=== PATIENT | male | born 1975 | race Caucasian/White ===

== ENCOUNTER 2020-12-14 14:08 | Inpatient (IN) | payer MEDICAID, OTHER, SELFPAY ==
[~2020-12-14] VITALS: Ht 180.3 cm; Wt 91.4 kg
[2020-12-14 16:58] LABS: HEMATOCRIT 44.8 % (42.0-52.0); HEMOGLOBIN 14.6 g/dl (13.5-17.5); MEAN CORPUSCULAR HEMOGLOBIN 29.3 pg (27.0-33.0); MEAN CORPUSCULAR HGB CONC 32.6 g/dl (32.0-36.5); PLATELET COUNT, AUTOMATED 304 10^3/uL (150-450); RED BLOOD COUNT 4.98 10^6/uL (4.30-6.10); WHITE BLOOD COUNT 14.6 10^3/uL (4.0-10.0)
[2020-12-14 17:26] LABS: AMPHETAMINES LEVEL URINE NEGATIVE (NEGATIVE); BARBITURATES URINE NEGATIVE (NEGATIVE); BENZODIAZEPINES URINE NEGATIVE (NEGATIVE); CANNABINOIDS URINE POSITIVE (NEGATIVE); COCAINE METABOLITE URINE NEGATIVE (NEGATIVE); METHADONE URINE NEGATIVE (NEGATIVE); OPIATES URINE NEGATIVE (NEGATIVE); PHENCYCLIDINE URINE NEGATIVE (NEGATIVE)
[2020-12-14 17:36] LABS: ACETAMINOPHEN LEVEL < 2.0 UG/ML (10.0-30.0); ALBUMIN 3.9 GM/DL (3.2-5.2); ALT/SGPT 25 U/L (12-78); BILIRUBIN,DIRECT 0.1 MG/DL (0.0-0.2); BILIRUBIN,TOTAL 0.3 MG/DL (0.2-1.0); BLOOD UREA NITROGEN 14 MG/DL (7-18); CALCIUM LEVEL 9.2 MG/DL (8.5-10.1); CARBON DIOXIDE LEVEL 25 MEQ/L (21-32); CHLORIDE LEVEL 103 MEQ/L (98-107); CREATININE FOR GFR 1.14 MG/DL (0.70-1.30); ETHYL ALCOHOL (ETHANOL) < 0.003 % (0.000-0.010); GLOMERULAR FILTRATION RATE > 60.0 (>60); GLUCOSE, FASTING 109 MG/DL (70-100); POTASSIUM SERUM 4.5 MEQ/L (3.5-5.1); SALICYLATE LEVEL < 1.7 MG/DL (5.0-30.0); SODIUM LEVEL 139 MEQ/L (136-145); THYROID STIMULATING HORMONE 0.633 uIU/ML (0.358-3.740); TOTAL PROTEIN 7.6 GM/DL (6.4-8.2)
[2020-12-14 19:28] LABS: RSV AMPLIFICATION NEGATIVE (NEGATIVE)
--- NOTE | 2020-12-14 20:15 | ECGEPIP ---
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
[2020-12-15] MEDS ORDERED: MAALOX 30 ML SUSP *UDC PO PRN (19:45)
[2020-12-15] MEDS ORDERED: LORazepam 2 MG TAB PO PRN (19:45)
[2020-12-15] MEDS ORDERED: traZODone 50 MG TAB PO PRN (19:45)
[2020-12-15] MEDS ORDERED: MOM 30ML SUSPENSION UDC PO PRN (19:45)
[2020-12-15] MEDS ORDERED: LORazepam 1 MG TAB PO PRN (19:45)
[2020-12-15] MEDS ORDERED: haloperidoL 5 MG TAB PO PRN (19:45)
[2020-12-15 22:33] VITALS: BP 140/70
[2020-12-16 09:30] VITALS: BP 134/84
--- NOTE | 2020-12-16 12:54 | HPEPDOC ---
[facility] Medical History & Physical Date of Admission Dec 15, 2020 Date of Service: Dec 16, 2020 Attending Physician: Cassie Atwood MD History and Physical MEDICAL H&P HISTORY OF PRESENT ILLNESS: Patient is a 45 y/o M admitted for unspecified psychosis on 12/15/20. The patient states he's had multiple life stressors over the past several weeks and, in particular his daughter being sick and being in the hospital. Patient denies AH, VH, hopelessness, SI/HI, increased crying. He admits that he felt "not himself" prior to [facility] with feelings of paranoia, confusion, passing out for several seconds and decreased appetite over the past several weeks due to the stress. Today he denies chest pain, shortness of breath, fevers, chills, n/v/d, abdominal pain. REVIEW OF SYSTEMS: Neg except mentioned above PAST MEDICAL HISTORY: hx of suicidal attempt 15 years ago 2/2 to drug-induced manic psychosis PAST SURGICAL HISTORY: None FAMILY HISTORY: Father: CAD. at 66 y/o Mother: HTN- at 64 y/o SOCIAL HISTORY: Prior smoker of 1/2-1 PPD for 20+ years, quit 20 years ago. Occasional alcohol use, denies drug use. Lives alone, currently unemployed. Full Code. ALLERGIES: Please see below. HOME MEDICATIONS: Please see below. PHYSICAL EXAMINATION: VS: Please see below CONSTITUTIONAL: No acute distress, AAO x 3 EYES: PERRLA, EOM intact HENT, MOUTH: Normocephalic, atraumatic, moist mucous membranes, NECK: SUPPLE, no JVD, no lymphadenopathy, no carotid bruit CV: Regular rate and rhythm, S1S2 normal, no murmurs/rubs/gallops RESPIRATORY: Clear to auscultation bilaterally, no rales/rhonchi/wheezes GI: BS positive in 4 quadrants, soft, nontender, nondistended, no rebound or guarding, no organomegaly : Deferred MUSCULOSKELETAL: Normal ROM. No cyanosis, clubbing, swelling, joint deformity, extremity edema INTEGUMENTARY: Intact, no rashes, no lesions, no erythema NEUROLOGIC: Cranial Nerves II-XII are intact, no focal deficits PSYCHIATRIC: Mood and affect are normal LABORATORY DATA: Please see below IMAGING: None ASSESSMENT: 45 y/o M admitted with unspecified psychosis. PLAN: 1. Unspecified psychosis. Plan per psychiatry team. DISPOSITION: Thank you kindly for this consult. At this time patient is medically stable aside from his psychiatric illness being tended to by psychiatry team. Will sign off but if we are needed at any time please feel free to call. Vital Signs Vital Signs Date Time Temp Pulse Resp B/P (MAP) Pulse Ox O2 Delivery O2 Flow Rate FiO2 12/15/20 22:33 98.9 78 16 140/70 (93) 96 Room Air Home Medications No Active Prescriptions or Reported Meds Allergies Coded Allergies: No Known Allergies (Verified , 06/20/04) A-FIB/CHADSVASC A-FIB History Current/History of A-Fib/PAF?: No Current PO Anticoag Therapy: No Age/Risk Factor Scoring CHADSVASC: CHADSVASC Response (Comments) Value Age Risk Factor Age < 65 years old 0 Gender Risk Factor Male 0 Hx of CHF No 0 Hx of HTN No 0 Hx of Stroke/TIA/or VTE No 0 Hx of Diabetes No 0 Hx of Vascular Disease No 0 Total 0 Treatment Treatment ordered: Other Other anticoagulant ordered: none Cassie Atwood MD Dec 16, 2020 12:54
[2020-12-16] MEDS ORDERED: risperiDONE 0.5 MG TAB PO ONE (16:00)
[2020-12-16 17:52] VITALS: BP 130/81
[2020-12-16] MEDS: risperiDONE 0.5 MG TAB PO SCH (20:44)
[2020-12-17] MEDS: risperiDONE 0.5 MG TAB PO SCH (08:40)
--- NOTE | 2020-12-17 13:40 | MHHPEPDOC ---
General Date Of Admission: Dec 16, 2020 Legal Status: 9.39 Chief Complaint Late entry for 12/16/20 They were going to murder me! History of Present Illness Late entry for 12/16/20 Dereck is a 45 year old male with a history of unspecified psychosis, Cannabis use disorder, one past inpatient Psychiatric hospitalization who was brought to the [facility] ED by Estrada MAURICIO, after an altercation with his ex- and her . Patient states that his 16 year old daughter is currently being hospitalized at [facility] for self-injurious behaviors and his ex- invited him over to her residence so they could discuss about possible disposition options for their daughter. States that, when he arrived there, his ex- and her made him feel incredibly uncomfortable, to the point where he believed his safety was in jeopardy. They wanted to kill me; they honestly wanted to murder me! States that he does not have definitive proof but he believes that they are involved with the homicide of Benito Cottrell one year ago. They all used to drink and hang out together; then they started acting really funny and strange after he was killed. Due to feeling unsafe, he then stated that he went to his residence to get his handgun (for self defen se), and he then called 911 in and police arrived shortly thereafter to his house. I even showed the tool grinder set up operator gear my two guns, because I wanted them to know how scared I was for my life. After the tool grinder set up operator gear arrived, they then brought him to the [facility] ED for a psychiatric evaluation, where he was later admitted to the [facility]. Paranoid ideation is starkly present along with likely paranoid delusions that his ex- and were going to try to murder him. (Assuming they were not) He denies any current passive or active suicidal or homicidal ideation, intent or plan. Endorsing smoking cannabis approximately two weeks ago but denies any other substance use. Denies any manic symptoms. Denies any perceptual disturbances; he does not appear internally preoccupied. States that he also believes his ex-wifes may be sexually inappropriate with his 16 year old daughter. 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 Psychiatric Review of Systems Depression (2 or more weeks): difficulty concentrating Shelly (4 or more days of): irritable/elevated mood, distractibility, engages in risky behavior Psychosis: delusions, paranoia PTSD: denies Anxiety: gen/non-specific anxiety Anxiety/ 6 months or more of: difficulty concentrating, irritability Past Psychiatric History Endorses one inpatient Psychiatric hospitalization in 2003 for substance induced psychosis. Denies any outpatient or inpatient treatment after that brief hospitalization. He denies any history of suicide attempts or violence in the past. He had one brief trial with Risperdal with good effect in 2003. Past Medical History Medical Problems denies Family Medical/Psychiatric HX Psychiatric Disorders: Yes (daughter- MDD and Borderline Personality disorder) Addiction History other (cannabis- 2x per month) Social History States that he is ; He is not in a current relationship; He has a 16 year old daughter who resides with his ex- and her . 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 Denies hx of abuse. He, according to him, owns two guns. He denies having a legal history. Mental Status Examination General Appearance: disheveled, ds/not appear stated age, hospital scubs/clothing Build: overweight Demeanor: mistrustful, withdrawn, preoccupied, guarded Eye Contact: fair Activity: slowed Behavior: cooperative Speech: clear, spontaneous, slow, reg/rate,rhythm,volume Mood: euthymic Affect: constricted Thought Process: logical/linear Thought Content (Delusions): persecutory, denies SI, HI, AVH, paranoia, delusions Thought Content (Other): preoccupied, appears paranoid Thought Content (Aggressive): none reported Perception (Hallucinations): none reported Perception (Other): none reported Cognition (Impairment of): none reported Cognition(Intelligence Est.): average Oriented: Oriented times three Insight: poor Judgment: Poor Psychosis: Abstract Thinking Diagnoses Unspecified psychosis Cannabis use disorder, mild type r/o Substance induced psychosis A-FIB/CHADSVASC A-FIB History Current/History of A-Fib/PAF?: No Current PO Anticoag Therapy: No Age/Risk Factor Scoring CHADSVASC: CHADSVASC Response (Comments) Value Age Risk Factor Age < 65 years old 0 Gender Risk Factor Male 0 Hx of CHF No 0 Hx of HTN No 0 Hx of Stroke/TIA/or VTE No 0 Hx of Diabetes No 0 Hx of Vascular Disease No 0 Total 0 Treatment Treatment ordered: NONE Reason Anticoagulant not given: Not indicated/[id number] Assessment Dereck is a 45 year old male with a history of unspecified psychosis, Cannabis use disorder, one past inpatient Psychiatric hospitalization who was brought to the [facility] ED by Estrada MAURICIO, after an altercation with his ex- and her . Initial Treatment Plan 1. Patient was admitted on a [9.39] status. 2. Complete history was obtained. 3. With patients permission, family will be contacted and database will be expanded. 4. Patients medication regimen will be reviewed and changed accordingly. 5. Patient will be provided with protected environment. 6. Patient will be treated with individual, group, and milieu therapies. 7. Patient will receive supportive psych-education. 8. Discharge planning will commence immediately. 9. Outpatient follow-up treatment will be strongly recommended. 10. The initial treatment plan will focus initially on: Mood and psychotic symptoms Risk for suicide/homicide 11. q 15 minute checks 12. In terms of psychotropic medication management, starting Risperdal at 0.5 mg twice daily and will gradually continue to titrate to address psychotic symptomatology. 13. Strongly encourage both individual and group therapy. 14. He was given extensive psychoeducation in terms of all risks, benefits and alternatives to all treatment modalities and he vocalized understanding. 15. Continue to collaborate with Hospitalist to best optimize any medical comorbidities and to address his BMI. CBC, CMP, TSH, EKG, lipid panel, urine toxicology all conducted and will follow up. ESTIMATED LENGTH OF STAY: 5-7 DAYS. TIME SPENT COUNSELING AND COORDINATING INITIAL CARE: 120 minutes. Vital Signs Vital Signs Date Time Temp Pulse Resp B/P (MAP) Pulse Ox O2 Delivery O2 Flow Rate FiO2 12/16/20 17:52 99.3 75 16 130/81 (97) 97 12/16/20 09:30 Room Air Medications No Active Prescriptions or Reported Meds Allergies Coded Allergies: No Known Allergies (Verified , 06/20/04) JC KILLAIN MD Dec 17, 2020 13:40
[2020-12-17 17:46] VITALS: BP 137/86
--- NOTE | 2020-12-17 19:15 | MHIPNPDOC ---
[facility] Progress Note Progress Note Subjective: Dereck is a 45 year old male with a history of unspecified psychosis, Cannabis use disorder, one past inpatient Psychiatric hospitalization who was brought to the [facility] ED by Estrada MAURICIO, after an altercation with his ex- and her . Dereck states that the Risperdal is helping both his paranoid ideation and anxiety symptoms. Rates his anxiety as a 5/10 and states that his paranoid ideation is worse in the morning but it improves, gradually, as the day progresses. Endorsing initial and middle insomnia. States that appetite is fair. Endorsing depressed mood in reference to the fact that his daughter is hospitalized, currently, in a psychiatric facility in [place]. Im feeling a little better but still pretty crappy. Objective: Patient was seen and evaluated, he is alert and oriented times three, cognition good, fair eye contact, cooperative with assessment, normal body habitus, reji ears stated age, somewhat psychomotor retarded; Speech is normal in production, slow in rate and soft in volume; TP are more organized, concrete, goal directed; Mood: ok, I guess, affect: constricted, decreased intensity and range; TC: paranoid ideation and depressive themes are present; denies any current passive or active suicidal or homicidal ideation, intent or plan; d enies AH/VH/TH; insight, impulse control and judgment are fair/poor. A/P: Dereck is a 45 year old male with a history of unspecified psychosis, Cannabis use disorder, one past inpatient Psychiatric hospitalization who was brought to the [facility] ED by Estrada MAURICIO, after an altercation with his ex- and her . 1) Extensive psychoeducation given in terms of all risks, benefits and alternatives to all modalities of treatment and he vocalized understanding. 2) Risperdal increased to 1 mg twice daily to better help alleviate psychotic sxs; AIMS conducted, score of zero, no EPS. 3) Continue to encourage group participation in community milieu with other peers 4) Continue to collaborate with treatment team and Hospitalist on unit 5) He will be discharged back home with appropriate aftercare in place, on 12/22/20. Total time spent: 45 minutes Vital Signs Vital Signs Date Time Temp Pulse Resp B/P (MAP) Pulse Ox O2 Delivery O2 Flow Rate FiO2 12/17/20 17:46 99.2 85 18 137/86 (103) 96 Room Air Current Medications Current Medications Medications (Trade) Dose Ordered Sig/Espinoza Route PRN Reason Start Time Stop Time Status Last Admin Dose Admin Acetaminophen (Tylenol Tab) 650 mg Q6HP PRN PO HEADACHE or DISCOMFORT 12/15/20 19:45 Al Hydrox/Mg Hydrox/Simethicone (Mylanta) 30 ml Q4HP PRN PO HEARTBURN/INDIGESTION 12/15/20 19:45 Haloperidol (Haldol) 5 mg Q6HP PRN PO ANXIETY/AGITATION 12/15/20 19:45 Home Med (Med Rec Complete!) ASDIRECTED XX 12/14/20 19:30 12/14/20 19:22 DC Lorazepam (Ativan) 1 mg Q6HP PRN PO ANXIETY/AGITATION 12/15/20 19:45 12/16/20 15:52 DC Lorazepam (Ativan) 2 mg Q6HP PRN PO ANXIETY/AGITATION 12/15/20 19:45 Magnesium Hydroxide (Milk Of Magnesia) 30 ml DAILYPRN PRN PO CONSTIPATION 12/15/20 19:45 Risperidone (RisperDAL) 0.5 mg BID PO 12/16/20 21:00 12/17/20 09:45 DC 12/17/20 08:40 Risperidone (RisperDAL) 1 mg BID PO 12/17/20 21:00 Trazodone HCl (Desyrel) 50 mg QHSP PRN PO INSOMNIA 12/15/20 19:45 Allergies Coded Allergies: No Known Allergies (Verified , 06/20/04) JC KILLIAN MD Dec 17, 2020 19:15
[2020-12-17] MEDS: risperiDONE 1 MG TAB PO SCH (20:07)
[2020-12-18 06:37] VITALS: BP 137/64
[2020-12-18] MEDS: risperiDONE 1 MG TAB PO SCH ×2 (08:25→20:04)
--- NOTE | 2020-12-18 14:07 | MHIPNPDOC ---
[facility] Progress Note Progress Note Subjective: Dereck is a 45 year old male with a history of unspecified psychosis, Cannabis use disorder, one past inpatient Psychiatric hospitalization who was brought to the [facility] ED by Estrada MAURICIO, after an altercation with his ex- and her . Endorsing helplessness and hopelessness regarding his current family situation. I have a phone call with my daughters therapist today, so hopefully things will get a little better after I make some progress with that. Appetite remains poor; endorsing initial and middle insomnia; P rimarily isolative with one other peer on the unit; He is not readily engaged with group programming. Rates his paranoid ideation as a 4/10, worse in the morning. Objective: Patient was seen and evaluated, he is alert and oriented times three, cognition good, fair eye contact, cooperative with assessment, normal body habitus, appears stated age, somewhat psychomotor retarded; Speech is normal in production, slow in rate and soft in volume; TP are more organized, concrete, goal directed; Mood: a bit down, affect: constricted, decreased intensity and range; TC: paranoid ideation and depressive themes are present; denies any current passive or active suicidal or homicidal ideation, intent or plan; denies AH/VH/TH; insight, impulse control and judgment are fair/poor. A/P: Dereck is a 45 year old male with a history of unspecified psychosis, Cannabis use disorder, one past inpatient Psychiatric hospitalization who was brought to the [facility] ED by Estrada MAURICIO, after an altercation with his ex- and her . 1) Extensive psychoeducation given in terms of all risks, benefits and alternatives to all modalities of treatment and he vocalized understanding. 2) Risperdal continued at 1 mg twice daily to better help alleviate psychotic sxs; AIMS conducted, score of zero, no EPS. 3) Continue to encourage group participation in community milieu with other peers 4) Continue to collaborate with treatment team and Hospitalist on unit 5) He will be discharged back home with appropriate aftercare in place, on 12/22/20. Total time spent: 30 minutes Vital Signs Vital Signs Date Time Temp Pulse Resp B/P (MAP) Pulse Ox O2 Delivery O2 Flow Rate FiO2 12/18/20 06:37 98.5 67 18 137/64 (88) 96 Room Air Current Medications Current Medications Medications (Trade) Dose Ordered Sig/Espinoza Route PRN Reason Start Time Stop Time Status Last Admin Dose Admin Acetaminophen (Tylenol Tab) 650 mg Q6HP PRN PO HEADACHE or DISCOMFORT 12/15/20 19:45 Al Hydrox/Mg Hydrox/Simethicone (Mylanta) 30 ml Q4HP PRN PO HEARTBURN/INDIGESTION 12/15/20 19:45 Haloperidol (Haldol) 5 mg Q6HP PRN PO ANXIETY/AGITATION 12/15/20 19:45 Home Med (Med Rec Complete!) ASDIRECTED XX 12/14/20 19:30 12/14/20 19:22 DC Lorazepam (Ativan) 1 mg Q6HP PRN PO ANXIETY/AGITATION 12/15/20 19:45 12/16/20 15:52 DC Lorazepam (Ativan) 2 mg Q6HP PRN PO ANXIETY/AGITATION 12/15/20 19:45 Magnesium Hydroxide (Milk Of Magnesia) 30 ml DAILYPRN PRN PO CONSTIPATION 12/15/20 19:45 Risperidone (RisperDAL) 0.5 mg BID PO 12/16/20 21:00 12/17/20 09:45 DC 12/17/20 08:40 Risperidone (RisperDAL) 1 mg BID PO 12/17/20 21:00 12/18/20 08:25 Trazodone HCl (Desyrel) 50 mg QHSP PRN PO INSOMNIA 12/15/20 19:45 Allergies Coded Allergies: No Known Allergies (Verified , 06/20/04) JC KILLIAN MD Dec 18, 2020 14:07
[2020-12-18 16:22] VITALS: BP 142/81
[2020-12-19 06:21] VITALS: BP 141/67
[2020-12-19] MEDS: ACETAMINOPHEN TAB 650MG DOSE (2X325MG) PO PRN (06:38)
[2020-12-19] MEDS: risperiDONE 1 MG TAB PO SCH ×2 (08:33→20:08)
--- NOTE | 2020-12-19 13:51 | MHIPNPDOC ---
[facility] Progress Note Progress Note DATE OF SERVICE: 12/19/20 HISTORY:Dereck is a 45 year old male with a history of unspecified psychosis, Cannabis use disorder, one past inpatient Psychiatric hospitalization who was brought to the [facility] ED by Estrada MAURICIO, after an altercation with his ex- and her . Endorsing helplessness and hopelessness regarding his current family situation. VITAL SIGNS: See below. CURRENT MEDICATIONS: See below. MENTAL STATUS EXAMINATION: Patient is a 45-year old Single male, who is admitted to [facility] for psychosis. In today's interview, he is alert and oriented, appears his stated age, dressed appropriately, hygiene and grooming is fair to good, eye contact is good and is not observed with psychomotor agitation or retardation. Speech: Is fluid, conversant, normal rate, tone and volume Language skills are intact Thought processes including: linear and goal oriented Thought content: denies depression and anxiety. Denies suicidal/homicidal ideation, planning or intent. Abstract reasoning, and computation: fair Description of associations: denies, none observed Description of abnormal or psychotic thoughts: denies, none observed. Judgment: fair Insight: fair Orientation: alert and oriented to person, place, time and situation Recent and remote memory: intact Attention span and concentration: good Language: expansive Fund of knowledge: average Mood: Euthymic Mood Affect: reactive DIAGNOSES: Unspecified Psychosis ASSESSMENT: In today's interview patient has mildly tearful intermittently when talking about his daughter, states that he has been worried about her. He recalls that a friend had told him that he looked depressed and not well approximately one month ago and he recalls that he did not feel any different. He feels that his friend was seeing something that he wasn't seeing in himself. He reports continued insomnia, had Trazodone but does not want it, reporting nasal congestion. Stated that prior to coming in, he had a syncopal episode and describes what he states "now an out of body experience but I really thought I was and walked into my neighbor's house, I want to apologize to her when I leave here." Patient denies depression, anxiety, suicidal ideation/homicidal ideation, paranoia, zeeshan, psychotic symptoms, denies delusional or bizarre thinking, denies paranoia and is not observed with any psychotic symptoms in the interview. He recalls that approximately a month ago, he was having insomnia and feels that this may have been the celso of his illness. MANAGEMENT PLAN: Continue all medications, observations and treatment modalities as prescribed. Patient is a probable discharge on 12/22/20 TIME SPENT: 32 minutes. Vital Signs Vital Signs Date Time Temp Pulse Resp B/P (MAP) Pulse Ox O2 Delivery O2 Flow Rate FiO2 12/19/20 06:21 98.0 73 18 141/67 (91) 96 Room Air Current Medications Current Medications Medications (Trade) Dose Ordered Sig/Espinoza Route PRN Reason Start Time Stop Time Status Last Admin Dose Admin Acetaminophen (Tylenol Tab) 650 mg Q6HP PRN PO HEADACHE or DISCOMFORT 12/15/20 19:45 12/19/20 06:38 Al Hydrox/Mg Hydrox/Simethicone (Mylanta) 30 ml Q4HP PRN PO HEARTBURN/INDIGESTION 12/15/20 19:45 Haloperidol (Haldol) 5 mg Q6HP PRN PO ANXIETY/AGITATION 12/15/20 19:45 Home Med (Med Rec Complete!) ASDIRECTED XX 12/14/20 19:30 12/14/20 19:22 DC Lorazepam (Ativan) 1 mg Q6HP PRN PO ANXIETY/AGITATION 12/15/20 19:45 12/16/20 15:52 DC Lorazepam (Ativan) 2 mg Q6HP PRN PO ANXIETY/AGITATION 12/15/20 19:45 Magnesium Hydroxide (Milk Of Magnesia) 30 ml DAILYPRN PRN PO CONSTIPATION 12/15/20 19:45 Risperidone (RisperDAL) 0.5 mg BID PO 12/16/20 21:00 12/17/20 09:45 DC 12/17/20 08:40 Risperidone (RisperDAL) 1 mg BID PO 12/17/20 21:00 12/19/20 08:33 Trazodone HCl (Desyrel) 50 mg QHSP PRN PO INSOMNIA 12/15/20 19:45 12/18/20 23:14 Allergies Coded Allergies: No Known Allergies (Verified , 06/20/04) GILBERT BRISCOE NP Dec 19, 2020 13:51
[2020-12-19] MEDS: NICOTINE 21MG/24HR 1 EA TRANSDERMAL TD SCH (18:00)
[2020-12-19 19:33] VITALS: BP 160/80
[2020-12-20 06:48] VITALS: BP 135/73
[2020-12-20] MEDS: risperiDONE 1 MG TAB PO SCH ×2 (08:23→19:58)
[2020-12-20] MEDS: NICOTINE 21MG/24HR 1 EA TRANSDERMAL TD SCH (08:24)
[2020-12-20 18:16] VITALS: BP 138/79
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
[2020-12-21] MEDS: ACETAMINOPHEN TAB 650MG DOSE (2X325MG) PO PRN (04:56)
[2020-12-21 06:17] VITALS: BP 145/70
[2020-12-21] MEDS: NICOTINE 21MG/24HR 1 EA TRANSDERMAL TD SCH (08:20)
[2020-12-21] MEDS: risperiDONE 1 MG TAB PO SCH ×2 (08:20→20:00)
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
[2020-12-22] MEDS: ACETAMINOPHEN TAB 650MG DOSE (2X325MG) PO PRN (05:31)
[2020-12-22 07:06] VITALS: BP 130/84
[2020-12-22] MEDS: NICOTINE 21MG/24HR 1 EA TRANSDERMAL TD SCH (08:46)
[2020-12-22] MEDS: risperiDONE 1 MG TAB PO SCH ×2 (08:46→20:26)
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
[2020-12-22 16:06] VITALS: BP 140/84
[2020-12-23 06:21] VITALS: BP 148/68
[2020-12-23] MEDS: NICOTINE 21MG/24HR 1 EA TRANSDERMAL TD SCH (08:05)
[2020-12-23] MEDS: risperiDONE 1 MG TAB PO SCH (08:06)
[2020-12-23] MEDS ORDERED: RISP-8 PO (12:30)
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
== END 2020-12-23 15:45 | disposition home or self-care (01) | DRG 751 ==
LOC: M ED 14:08 → M ED INP 12-15 19:35 → M PSY 12-15 22:34
PROVIDERS: ADMIT Psychiatry & Neurology Geriatric Psychiatry; ATTEND Psychiatry & Neurology Psychiatry
DX: F29 Unspecified psychosis not due to a substance or known physiological condition (principal); F12.10 Cannabis abuse, uncomplicated; Z87.891 Personal history of nicotine dependence

== ENCOUNTER → 2021-01-09 | Outpatient (REF) | payer MEDICAID, OTHER ==
[~2021-01-09] MED LIST: RISP-8 PO
[2021-01-09 11:56] LABS: BASO # 0.1 10^3/uL (0.0-0.2); BASO % 0.7 % (0.0-1.0); EOS # 0.1 10^3/uL (0.0-0.5); EOS % 1.7 % (0.0-3.0); HEMATOCRIT 44.1 % (42.0-52.0); HEMOGLOBIN 14.6 g/dl (13.5-17.5); LYMPH # 1.7 10^3/uL (1.5-5.0); LYMPH % 21.9 % (24.0-44.0); MEAN CORPUSCULAR HEMOGLOBIN 29.7 pg (27.0-33.0); MEAN CORPUSCULAR HGB CONC 33.1 g/dl (32.0-36.5); MEAN CORPUSCULAR VOLUME 89.6 fl (80.0-96.0); MONO # 0.7 10^3/uL (0.0-0.8); MONO % 9.5 % (2.0-8.0); NEUTROPHILS # 4.9 10^3/uL (1.5-8.5); PLATELET COUNT, AUTOMATED 297 10^3/uL (150-450); RED BLOOD COUNT 4.92 10^6/uL (4.30-6.10); WHITE BLOOD COUNT 7.6 10^3/uL (4.0-10.0)
[2021-01-09 12:25] LABS: ALBUMIN 3.6 GM/DL (3.2-5.2); ALT/SGPT 62 U/L (12-78); BILIRUBIN,TOTAL 0.3 MG/DL (0.2-1.0); BLOOD UREA NITROGEN 16 MG/DL (7-18); CALCIUM LEVEL 9.2 MG/DL (8.5-10.1); CARBON DIOXIDE LEVEL 27 MEQ/L (21-32); CHLORIDE LEVEL 106 MEQ/L (98-107); CHOLESTEROL LEVEL 212 MG/DL (<200); CHOLESTEROL RISK RATIO 5.729 (<5); CREATININE FOR GFR 1.04 MG/DL (0.70-1.30); GLOMERULAR FILTRATION RATE > 60.0 (>60); GLUCOSE, FASTING 111 MG/DL (70-100); HDL CHOLESTEROL 37 MG/DL (>40); LDL CHOLESTEROL 153 MG/DL (<100); NON-HDL-C 175 MG/DL; POTASSIUM SERUM 4.5 MEQ/L (3.5-5.1); SODIUM LEVEL 140 MEQ/L (136-145); THYROID STIMULATING HORMONE 0.728 uIU/ML (0.358-3.740); TOTAL PROTEIN 6.8 GM/DL (6.4-8.2); TRIGLYCERIDES LEVEL 111 MG/DL (<150)
[2021-01-09 12:32] LABS: TOTAL 25(OH) VITAMIN D 28.9 NG/ML (30.0-100.0)
[2021-01-09 13:12] LABS: HEPATITIS C VIRUS ABY INDEX 0.1 INDEX (<0.8); HIV 1&2 SCREEN CENTAUR NEGATIVE (NEGATIVE)
== END ==
LOC: M LAB REF 11:22
PROVIDERS: ATTEND Pediatrics
DX: Z11.4 Encounter for screening for human immunodeficiency virus [HIV] (principal); Z11.59 Encounter for screening for other viral diseases; Z13.220 Encounter for screening for lipoid disorders; E55.9 Vitamin D deficiency, unspecified; Z00.00 Encounter for general adult medical examination without abnormal findings